=== PATIENT | female | born 1990 | race Caucasian/White ===

== ENCOUNTER 2020-08-06 21:27 | Emergency (ER) | payer MEDICARE ==
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
== END 2020-08-06 23:00 | disposition home or self-care (01) ==
LOC: JP.ED 21:27
DX: B34.9 Viral infection, unspecified (principal); K22.4 Dyskinesia of esophagus; Z79.899 Other long term (current) drug therapy
CPT/HCPCS: 99282; 99284

== ENCOUNTER 2020-08-26 08:40 | Emergency (ER) | payer OTHER, MEDICARE ==
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
[2020-08-26] MEDS ORDERED: Ketorolac 30 MG/ML SDV IM ONE (11:46)
[2020-08-26] MEDS ORDERED: Methocarbamol 500 MG Tab PO ONE (11:47)
--- NOTE | 2020-08-26 12:00 | CT ---
Head wo Cont CLINICAL HISTORY: Head injury, headache COMPARISON: None TECHNIQUE: Transverse scans were obtained from the base of the skull through the vertex without IV contrast on a multislice, multidetector CT scanner. Auto dosage reduction and iterative reconstruction techniques employed. FINDINGS: No focal abnormal parenchymal density is identified.. There is no mass effect, hemorrhage, or extraaxial collection. The basal cisterns and sulci over the convexities are normal. The ventricles are normal. IMPRESSION: No acute intracranial findings
--- NOTE | 2020-08-26 12:01 | CR ---
Lumbar Spine 2 or 3V CLINICAL HISTORY: Fall, pain FINDINGS: The vertebral body heights are maintained. There is some disc space narrowing at L5-S1. This may be related to transitional sacral segment. Transverse and spinous processes and pedicles appear intact. There is some straightening of the lumbar lordosis. IMPRESSION: Disc space narrowing L5-S1. This may be partially related to the transitional segment No fracture or dislocation Straightening of the lumbar lordosis may indicate some spasm
== END 2020-08-26 12:45 | disposition home or self-care (01) ==
LOC: JP.ED 08:40
DX: S06.0X0A Concussion without loss of consciousness, initial encounter (principal); S39.012A Strain of muscle, fascia and tendon of lower back, initial encounter; W19.XXXA Unspecified fall, initial encounter
CPT/HCPCS: 70450; 70450-26; 72100; 72100-26; 96372; 99283; 99284-25; A9270-GY; J1885

== ENCOUNTER 2021-03-05 14:32 | Emergency (ER) | payer MEDICARE, MEDICAID ==
[2021-03-05] MEDS ORDERED: Codeine/guaiFENesin 10-100 MG/5 ML Syrup 5 ML Cup PO ONE (15:29)
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
[2021-03-05] MEDS ORDERED: Codeine/guaiFENesin 10-100 MG/5 ML Syrup 5 ML Cup ONE (16:00)
[2021-03-05] MEDS ORDERED: predniSONE 20 MG Tab PO ONE (16:40)
[2021-03-05] MEDS ORDERED: Albuterol/Ipratropium 3.0-0.5 MG/3 ML Neb Soln NEB ONE (16:41)
[2021-03-05] MEDS ORDERED: Albuterol 0.083% 2.5 MG/3 ML Neb Soln NEB ONE (17:17)
[2021-03-05] MEDS ORDERED: Ondansetron 4 MG Tab.DIS PO ONE (17:22)
== END 2021-03-05 17:56 | disposition home or self-care (01) ==
LOC: JP.ED 14:32
DX: J45.901 Unspecified asthma with (acute) exacerbation (principal); Z20.822 Contact with and (suspected) exposure to COVID-19
CPT/HCPCS: 36415; 85027; 99284; A9270; J7512; U0002; J7620-GY

== ENCOUNTER 2021-03-11 21:55 | Emergency (ER) | payer MEDICARE, MEDICAID ==
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
[2021-03-11] MEDS ORDERED: Albuterol/Ipratropium 3.0-0.5 MG/3 ML Neb Soln NEB ONE (23:43)
--- NOTE | 2021-03-14 09:23 | CR ---
CHEST: Lateral 03/11/2021 at 10:59 PM CLINICAL HISTORY:Cough COMPARISON:None FINDINGS: The heart size, pulmonary vascularity and hilar structures are normal. No infiltrate effusion or pneumothorax is seen. IMPRESSION: No acute cardiopulmonary process.
== END 2021-03-12 00:10 | disposition home or self-care (01) ==
LOC: JP.ED 21:55
DX: J45.909 Unspecified asthma, uncomplicated (principal); E66.01 Morbid (severe) obesity due to excess calories; E11.9 Type 2 diabetes mellitus without complications; Z20.822 Contact with and (suspected) exposure to COVID-19; Z68.43 Body mass index [BMI] 50.0-59.9, adult
CPT/HCPCS: 71045; 94640; 99285; U0002; J7620-GY

== ENCOUNTER 2021-03-15 18:27 | Emergency (ER) | payer MEDICARE, MEDICAID ==
[2021-03-15] MEDS ORDERED: Iopamidol 612 MG/ML 100 ML Bottle IV SCH (19:30)
[2021-03-15] MEDS ORDERED: Sodium Chloride 0.9% 80 ML IV SCH (19:30)
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
--- NOTE | 2021-03-15 20:15 | CRLCT ---
For Patients: As a result of the Century Cures Act, medical imaging exams and procedure reports are released immediately into your electronic medical record. You may view this report before your referring provider. If you have questions, please contact your health care provider. INDICATION: Abdominal pain. TECHNIQUE: CT abdomen and pelvis acquired with 100 mL Isovue-300 contrast. COMPARISON: None FINDINGS: Lower chest: No focal consolidation. Liver: No suspicious focal hepatic lesion. Gallbladder and bile ducts: 1.4 cm peripherally calcified gallstone. No secondary signs of acute cholecystitis. Pancreas: Unremarkable. Spleen: Unremarkable. Adrenal glands: Unremarkable. Kidneys: Kidneys enhance symmetrically, without hydronephrosis. Retroperitoneum: No lymphadenopathy. Bowel and mesentery: Bowel is nonobstructed. Normal appendix. Bladder: Decompressed, suboptimally evaluated. Reproductive organs: Diffuse abnormal thickening of the endometrium with ill-defined soft tissue. Pelvic lymph nodes: No lymphadenopathy. Vessels: Unremarkable. Abdominal wall: No acute abdominal wall abnormality. Bones: No suspicious/aggressive focal osseous lesion. IMPRESSION: 1. Diffuse abnormal thickening of the endometrium with ill-defined soft tissue, recommend further evaluation with pelvic ultrasound. 2. Large peripherally calcified 1.4 cm gallstone. No secondary signs of acute cholecystitis. Please note that all CT scans at this facility use dose modulation, iterative reconstruction, and/or weight-based dosing when appropriate to reduce radiation dose to as low as reasonably achievable. Dictated by Ronna Garcia MD @ 03/15/2021 8:14:[address] Ronna Garcia @ Mar 15 2021 8:14PM
== END 2021-03-15 21:49 | disposition home or self-care (01) ==
LOC: JP.ED 18:27
DX: K80.20 Calculus of gallbladder without cholecystitis without obstruction (principal); B34.9 Viral infection, unspecified; R42 Dizziness and giddiness; J45.909 Unspecified asthma, uncomplicated; E11.9 Type 2 diabetes mellitus without complications; Z79.899 Other long term (current) drug therapy
CPT/HCPCS: 74177; 99284; Q9967

== ENCOUNTER 2021-03-23 14:59 | Emergency (ER) | payer MEDICARE, MEDICAID ==
[2021-03-23] MEDS ORDERED: fentaNYL 100 MCG/2 ML SDV IVPUSH ONE (16:22)
[2021-03-23] MEDS ORDERED: Prochlorperazine 10 MG/2 ML SDV IVPUSH ONE (16:22)
[2021-03-23] MEDS ORDERED: Sodium Chloride 0.9% 10 ML Syringe FLUSH PRN (16:22)
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
[2021-03-23] MEDS ORDERED: Lactated Ringers 1,000 ML IV SCH (16:30)
--- NOTE | 2021-03-23 18:19 | CRLUS ---
For Patients: As a result of the Century Cures Act, medical imaging exams and procedure reports are released immediately into your electronic medical record. You may view this report before your referring provider. If you have questions, please contact your health care provider. INDICATION: Right upper quadrant pain. COMPARISON: CT of the abdomen and pelvis 03/15/2021. TECHNIQUE: Real time cornejo scale imaging and color Doppler analysis was performed of the right upper quadrant. FINDINGS: Liver: The liver is normal in size measuring 15.8 cm in length. Increased echogenicity compatible with hepatic steatosis. No focal liver lesions. Gallbladder: There is a mobile shadowing gallstone measuring 1.9 cm in size. No wall thickening or pericholecystic fluid. Negative sonographic Sawant sign. Bile ducts: No biliary dilation. The common bile duct measures 4 mm in diameter. Pancreas: Not well seen. Right kidney: The right kidney measures 10.1 cm in length. No hydronephrosis, calculus, or mass. Vascular: The IVC is patent. The main portal vein is patent with normal hepatopetal flow. IMPRESSION: 1. Cholelithiasis without evidence of cholecystitis. 2. Diffuse hepatic steatosis. Dictated by Lisa Justin MD @ 03/23/2021 6:17:26 PM (Electronically Signed)
== END 2021-03-23 18:56 | disposition home or self-care (01) ==
LOC: JP.ED 14:59
DX: K59.04 Chronic idiopathic constipation (principal); J45.909 Unspecified asthma, uncomplicated; E11.9 Type 2 diabetes mellitus without complications; Z79.84 Long term (current) use of oral hypoglycemic drugs; Z79.899 Other long term (current) drug therapy
CPT/HCPCS: 36415; 76705; 80053; 81001; 81025; 83605; 83690; 85025; 96374; 96375; 99284; J0780; J3010; J7120

== ENCOUNTER 2021-07-21 17:18 | Emergency (ER) | payer MEDICARE, MEDICAID ==
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
== END 2021-07-21 18:38 | disposition home or self-care (01) ==
LOC: JP.ED 17:18
DX: K52.9 Noninfective gastroenteritis and colitis, unspecified (principal); E66.01 Morbid (severe) obesity due to excess calories; E11.9 Type 2 diabetes mellitus without complications; Z79.84 Long term (current) use of oral hypoglycemic drugs; Z68.43 Body mass index [BMI] 50.0-59.9, adult
CPT/HCPCS: 99283

== ENCOUNTER 2022-03-14 19:01 | Emergency (ER) | payer MEDICARE, MEDICAID | END 2022-03-14 21:59 | disposition home or self-care (01) | LOC: JP.ED 19:01 | DX: S06.0X9A Concussion with loss of consciousness of unspecified duration, initial encounter (principal); S16.1XXA Strain of muscle, fascia and tendon at neck level, initial encounter; S39.012A Strain of muscle, fascia and tendon of lower back, initial encounter; S00.03XA Contusion of scalp, initial encounter; S70.02XA Contusion of left hip, initial encounter; E11.9 Type 2 diabetes mellitus without complications; E66.9 Obesity, unspecified; Z68.30 Body mass index [BMI] 30.0-30.9, adult; Z79.84 Long term (current) use of oral hypoglycemic drugs; W01.198A Fall on same level from slipping, tripping and stumbling with subsequent striking against other object, initial encounter | CPT/HCPCS: 70450; 72070; 72100; 72125; 73502-LT; 99284 ==

== ENCOUNTER 2022-05-18 17:51 | Emergency (ER) | payer MEDICARE, MEDICAID | END 2022-05-18 18:42 | disposition home or self-care (01) | LOC: JP.ED 17:51 | DX: S39.012A Strain of muscle, fascia and tendon of lower back, initial encounter (principal); R68.84 Jaw pain; M62.838 Other muscle spasm; E11.9 Type 2 diabetes mellitus without complications; E66.9 Obesity, unspecified; Z68.30 Body mass index [BMI] 30.0-30.9, adult; Z79.899 Other long term (current) drug therapy; Z79.84 Long term (current) use of oral hypoglycemic drugs; Y04.0XXA Assault by unarmed brawl or fight, initial encounter | CPT/HCPCS: 99283 ==

== ENCOUNTER 2022-05-22 17:51 | Emergency (ER) | payer MEDICARE, MEDICAID ==
[2022-05-22] MEDS ORDERED: Sodium Chloride 0.9% 10 ML Syringe FLUSH PRN (19:03)
[2022-05-22] MEDS ORDERED: Ondansetron 4 MG/2 ML SDV IVPUSH ONE (19:10)
[2022-05-22] MEDS ORDERED: Ketorolac 30 MG/ML SDV IVPUSH ONE (19:11)
[2022-05-22] MEDS ORDERED: Sodium Chloride 0.9% 500 ML IV ONE (19:15)
[2022-05-22] MEDS ORDERED: Sodium Chloride 0.9% 75 ML IV SCH (19:45)
[2022-05-22] MEDS ORDERED: Iopamidol 612 MG/ML 100 ML Bottle IV SCH (19:45)
[2022-05-22 19:56] LABS: ESTIMATED GFR 101 mL/min (>60)
[2022-05-22] MEDS ORDERED: Pantoprazole 40 MG Vial IVPUSH ONE (20:20)
== END 2022-05-22 21:15 | disposition home or self-care (01) ==
LOC: JP.ED 17:51
DX: K80.20 Calculus of gallbladder without cholecystitis without obstruction (principal); D50.9 Iron deficiency anemia, unspecified; J45.909 Unspecified asthma, uncomplicated; E11.9 Type 2 diabetes mellitus without complications; E66.01 Morbid (severe) obesity due to excess calories; Z68.43 Body mass index [BMI] 50.0-59.9, adult; Z79.84 Long term (current) use of oral hypoglycemic drugs; Z79.899 Other long term (current) drug therapy
CPT/HCPCS: 36415; 74177; 80053; 83690; 85025; 86140; 96374; 96375; 99284; C9113; J1885; J2405; J3490; J7040; Q9967

== ENCOUNTER 2022-06-20 07:19 | Day surgery (SDC) | payer MEDICARE, MEDICAID ==
[2022-06-20] MEDS ORDERED: Sodium Chloride 0.9% 1,000 ML IV SCH (08:00)
[2022-06-20] MEDS ORDERED: Midazolam 1 MG/ML 2 ML SDV ONE (08:20)
[2022-06-20] MEDS ORDERED: Propofol 200 MG/20 ML SDV ONE (08:20)
[2022-06-20] MEDS ORDERED: fentaNYL 50 MCG/ML SDV ONE (08:20)
== END 2022-06-20 09:49 | disposition home or self-care (01) ==
LOC: JP.SDS 07:19
PROVIDERS: ATTEND Family Medicine
DX: K29.50 Unspecified chronic gastritis without bleeding (principal); K21.9 Gastro-esophageal reflux disease without esophagitis; D50.9 Iron deficiency anemia, unspecified; J45.909 Unspecified asthma, uncomplicated; E66.9 Obesity, unspecified; E11.9 Type 2 diabetes mellitus without complications; Z79.899 Other long term (current) drug therapy; Z91.018 Allergy to other foods
CPT/HCPCS: 43239; 88305; 88342; J2250; J2704; J3010; J7030

== ENCOUNTER 2023-01-02 21:48 | Emergency (ER) | payer MEDICARE, MEDICAID ==
[2023-01-02 23:00] LABS: APPEARANCE,URINE CLEAR (CLEAR); BILIRUBIN,URINE NEGATIVE (NEGATIVE); COLOR,URINE YELLOW (YELLOW); GLUCOSE,URINE 100 mg/dL (NEGATIVE); KETONES,URINE NEGATIVE (NEGATIVE); LEUKOCYTE ESTERASE,URINE NEGATIVE (NEGATIVE); NITRITE,URINE NEGATIVE (NEGATIVE); OCCULT BLOOD,URINE MODERATE (NEGATIVE); PH,URINE 5.5 (5.0-8.0); PROTEIN,URINE NEGATIVE (NEGATIVE); UROBILINOGEN,URINE 0.2 EU/dL (0.2-1.0)
[2023-01-02 23:15] LABS: AMORPHOUS SEDIMENT,URINE NOT SEEN; BACTERIA,URINE MANY; EPITHELIAL CELLS,URINE MODERATE; MUCUS,URINE NOT SEEN; RBC,URINE 0-5 (0-5); WBC,URINE 0-5 (0-5)
[2023-01-02] MEDS ORDERED: Phenazopyridine 95 MG Tab PO STA (23:32)
== END 2023-01-02 23:54 | disposition home or self-care (01) ==
LOC: JP.ED 21:48
DX: N30.01 Acute cystitis with hematuria (principal); J45.909 Unspecified asthma, uncomplicated; E11.9 Type 2 diabetes mellitus without complications; E66.9 Obesity, unspecified; Z68.43 Body mass index [BMI] 50.0-59.9, adult; Z91.018 Allergy to other foods; Z91.048 Other nonmedicinal substance allergy status; Z86.16 Personal history of COVID-19; Z79.899 Other long term (current) drug therapy
CPT/HCPCS: 81001; 81025; 87086; 99284; A9270

== ENCOUNTER 2023-01-05 21:16 | Emergency (ER) | payer MEDICARE, MEDICAID ==
[2023-01-05] MEDS: Sodium Chloride 0.9% 10 ML Syringe FLUSH PRN (23:01)
[2023-01-05 23:02] LABS: BASOPHILS ABSOLUTE AUTO 0.03 K/uL (0.00-0.10); BASOPHILS PERCENT AUTO 0.4 % (0.1-1.3); EOSINOPHILS ABSOLUTE AUTO 0.35 K/uL (0.00-0.40); EOSINOPHILS PERCENT AUTO 4.7 % (0.0-5.4); HEMATOCRIT 34.5 % (34.3-46.0); HEMOGLOBIN 10.9 g/dL (11.2-15.5); IMMATURE GRAN PERCENT AUTO 0.3 % (0.0-0.7); LYMPHOCYTES ABSOLUTE AUTO 0.42 K/uL (0.8-3.3); LYMPHOCYTES PERCENT AUTO 5.6 % (11.4-47.7); MEAN CORPUSCULAR HGB CONC 31.6 g/dL (31.6-35.5); MEAN CORPUSCULAR VOLUME 75.8 fL (81.4-99.0); MONOCYTES ABSOLUTE AUTO 0.39 K/uL (0.20-0.90); MONOCYTES PERCENT AUTO 5.2 % (3.3-12.6); NEUTROPHILS ABSOLUTE AUTO 6.28 K/uL (1.0-7.6); NEUTROPHILS PERCENT AUTO 83.8 % (40.0-78.1); PLATELET COUNT,PLT 298 K/uL (130-375); RED BLOOD CELL COUNT 4.55 M/uL (3.77-5.24); WHITE BLOOD CELL COUNT,WBC 7.5 K/uL (3.2-11.0)
[2023-01-05 23:10] LABS: IMMATURE GRAN ABSOLUTE AUTO 0.02 K/uL (0.00-0.23)
[2023-01-05 23:13] LABS: CALCIUM 8.6 mg/dL (8.5-10.1); CREATININE 0.8 mg/dL (0.6-1.0); EST CRCL DRUG DOSING (CG) 76.89 mL/min; POTASSIUM,K 3.8 mmol/L (3.6-5.2)
[2023-01-05] MEDS ORDERED: Iopamidol 612 MG/ML 150 ML Bottle IV SCH (23:15)
[2023-01-05] MEDS ORDERED: Sodium Chloride 0.9% 50 ML IV SCH (23:15)
[2023-01-05 23:19] LABS: ANION GAP 13.8 mmol/L (5.0-14.0)
[2023-01-06] MEDS: Sodium Chloride 0.9% 10 ML Syringe FLUSH PRN (00:09)
== END 2023-01-06 00:49 | disposition home or self-care (01) ==
LOC: JP.ED 21:16
DX: R10.30 Lower abdominal pain, unspecified (principal); J45.909 Unspecified asthma, uncomplicated; E11.9 Type 2 diabetes mellitus without complications; E66.9 Obesity, unspecified; Z68.44 Body mass index [BMI] 60.0-69.9, adult; Z91.018 Allergy to other foods; Z91.048 Other nonmedicinal substance allergy status; Z86.16 Personal history of COVID-19
CPT/HCPCS: 36415; 74177; 80048; 82247; 85025; 99284; J3490; Q9967

== ENCOUNTER 2023-09-22 10:52 | Emergency (ER) | payer MEDICAID, MEDICARE ==
[2023-09-22] MEDS: Ketorolac 30 MG/ML SDV IVPUSH ONE (11:46)
[2023-09-22] MEDS: Ondansetron 4 MG/2 ML SDV IVPUSH ONE (11:46)
[2023-09-22] MEDS: Lactated Ringers 1,000 ML IV SCH (11:46)
[2023-09-22 11:47] LABS: BASOPHILS ABSOLUTE AUTO 0.05 K/uL (0.00-0.10); BASOPHILS PERCENT AUTO 0.3 % (0.1-1.3); EOSINOPHILS ABSOLUTE AUTO 0.33 K/uL (0.00-0.40); EOSINOPHILS PERCENT AUTO 2.1 % (0.0-5.4); HEMATOCRIT 42.6 % (34.3-46.0); HEMOGLOBIN 13.5 g/dL (11.2-15.5); IMMATURE GRAN ABSOLUTE AUTO 0.05 K/uL (0.00-0.23); IMMATURE GRAN PERCENT AUTO 0.3 % (0.0-0.7); LYMPHOCYTES ABSOLUTE AUTO 1.19 K/uL (0.8-3.3); LYMPHOCYTES PERCENT AUTO 7.5 % (11.4-47.7); MEAN CORPUSCULAR HEMOGLOBIN 24.7 pg (31.6-35.5); MEAN CORPUSCULAR HGB CONC 31.7 g/dL (31.6-35.5); MONOCYTES ABSOLUTE AUTO 0.75 K/uL (0.20-0.90); MONOCYTES PERCENT AUTO 4.7 % (3.3-12.6); NEUTROPHILS ABSOLUTE AUTO 13.51 K/uL (1.0-7.6); NEUTROPHILS PERCENT AUTO 85.1 % (40.0-78.1); PLATELET COUNT,PLT 383 K/uL (130-375); RED BLOOD CELL COUNT 5.46 M/uL (3.77-5.24); WHITE BLOOD CELL COUNT,WBC 15.9 K/uL (3.2-11.0)
[2023-09-22] MEDS: Sodium Chloride 0.9% 10 ML Syringe FLUSH PRN (11:50)
[2023-09-22 12:20] LABS: A/G RATIO 0.6 (1.2-2.2); ALANINE AMINOTRANSFERASE,ALT 23 U/L (12-78); ALBUMIN 3.3 g/dL (3.4-5.0); ALKALINE PHOSPHATASE 107 U/L (46-116); ASPARTATE AMNIOTRANSFERASE,AST 19 U/L (15-37); BILIRUBIN TOTAL 0.2 mg/dL (0.2-1.0); BLOOD UREA NITROGEN,BUN 9 mg/dL (7-18); CALCIUM 9.9 mg/dL (8.5-10.1); CARBON DIOXIDE,CO2 20 mmol/L (21-32); CHLORIDE,CL 98 mmol/L (100-108); CREATININE 1.1 mg/dL (0.6-1.0); ESTIMATED GFR 68 mL/min (>60); GLUCOSE RANDOM 206 mg/dL (74-106); POTASSIUM,K 4.4 mmol/L (3.6-5.2); PROTEIN TOTAL,TP 9.1 g/dL (6.4-8.2); SODIUM,NA 136 mmol/L (140-148)
[2023-09-22 12:24] LABS: ANION GAP 22.4 mmol/L (5.0-14.0)
[2023-09-22 12:35] LABS: CORONAVIRUS COVID-19 NAA NEGATIVE (NEGATIVE); INFLUENZA A NAA NEGATIVE (NEGATIVE); INFLUENZA B NAA NEGATIVE (NEGATIVE); RESPIRATORY SYNCYTIAL VIR NAA NEGATIVE (NEGATIVE)
[2023-09-22] MEDS: Loperamide 2 MG Cap PO STA (13:37)
[2023-09-22] MEDS: Lactated Ringers 1,000 ML IV ONE (13:37)
== END 2023-09-22 15:18 | disposition home or self-care (01) ==
LOC: JP.ED 10:52
DX: K52.9 Noninfective gastroenteritis and colitis, unspecified (principal); J45.909 Unspecified asthma, uncomplicated; E11.9 Type 2 diabetes mellitus without complications; Z86.16 Personal history of COVID-19; Z79.899 Other long term (current) drug therapy; Z91.018 Allergy to other foods; Z91.048 Other nonmedicinal substance allergy status
CPT/HCPCS: 0241U; 36415; 80053; 83605; 83690; 84145; 84703; 85025; 86140; 96361; 96374; 96375; 99284; A9270; J1885; J2405; J3490; J7120

== ENCOUNTER 2023-11-10 20:19 | Emergency (ER) | payer MEDICARE ==
[2023-11-10] MEDS ORDERED: Sodium Chloride 0.9% 10 ML Syringe FLUSH PRN (22:15)
[2023-11-10 22:27] LABS: BASOPHILS ABSOLUTE AUTO 0.06 K/uL (0.00-0.10); BASOPHILS PERCENT AUTO 0.5 % (0.1-1.3); EOSINOPHILS ABSOLUTE AUTO 0.33 K/uL (0.00-0.40); EOSINOPHILS PERCENT AUTO 2.9 % (0.0-5.4); HEMATOCRIT 38.7 % (34.3-46.0); HEMOGLOBIN 12.3 g/dL (11.2-15.5); IMMATURE GRAN ABSOLUTE AUTO 0.04 K/uL (0.00-0.23); IMMATURE GRAN PERCENT AUTO 0.4 % (0.0-0.7); LYMPHOCYTES PERCENT AUTO 23.8 % (11.4-47.7); MEAN CORPUSCULAR HEMOGLOBIN 24.4 pg (31.6-35.5); MEAN CORPUSCULAR HGB CONC 31.8 g/dL (31.6-35.5); MEAN CORPUSCULAR VOLUME 76.8 fL (81.4-99.0); MONOCYTES ABSOLUTE AUTO 0.77 K/uL (0.20-0.90); MONOCYTES PERCENT AUTO 6.8 % (3.3-12.6); NEUTROPHILS ABSOLUTE AUTO 7.45 K/uL (1.0-7.6); NEUTROPHILS PERCENT AUTO 65.6 % (40.0-78.1); PLATELET COUNT,PLT 447 K/uL (130-375); RED BLOOD CELL COUNT 5.04 M/uL (3.77-5.24); WHITE BLOOD CELL COUNT,WBC 11.4 K/uL (3.2-11.0)
[2023-11-10 22:45] LABS: A/G RATIO 0.5 (1.2-2.2); ALANINE AMINOTRANSFERASE,ALT 20 U/L (12-78); ALBUMIN 2.8 g/dL (3.4-5.0); ALKALINE PHOSPHATASE 89 U/L (46-116); ANION GAP 14.3 mmol/L (5.0-14.0); ASPARTATE AMNIOTRANSFERASE,AST 13 U/L (15-37); BILIRUBIN TOTAL 0.3 mg/dL (0.2-1.0); BLOOD UREA NITROGEN,BUN 8 mg/dL (7-18); C-REACTIVE PROTEIN 10.11 mg/dL (<0.50); CALCIUM 10.1 mg/dL (8.5-10.1); CARBON DIOXIDE,CO2 28 mmol/L (21-32); CHLORIDE,CL 98 mmol/L (100-108); CREATININE 0.8 mg/dL (0.6-1.0); EST CRCL DRUG DOSING (CG) 76.18 mL/min; ESTIMATED GFR 100 mL/min (>60); GLUCOSE RANDOM 196 mg/dL (74-106); POTASSIUM,K 4.3 mmol/L (3.6-5.2); PROTEIN TOTAL,TP 8.6 g/dL (6.4-8.2); SODIUM,NA 136 mmol/L (140-148)
[2023-11-10 22:50] LABS: LACTIC ACID 1.9 mmol/L (0.4-2.0)
[2023-11-10 23:08] LABS: APPEARANCE,URINE CLEAR (CLEAR); BILIRUBIN,URINE NEGATIVE (NEGATIVE); COLOR,URINE YELLOW (YELLOW); GLUCOSE,URINE 500 mg/dL (NEGATIVE); KETONES,URINE NEGATIVE (NEGATIVE); LEUKOCYTE ESTERASE,URINE NEGATIVE (NEGATIVE); NITRITE,URINE NEGATIVE (NEGATIVE); OCCULT BLOOD,URINE MODERATE (NEGATIVE); PH,URINE 6.5 (5.0-8.0); PROTEIN,URINE 30 mg/dL (NEGATIVE); UROBILINOGEN,URINE 0.2 EU/dL (0.2-1.0)
[2023-11-10] MEDS: Sodium Chloride 0.9% 1,000 ML IV ONE (23:10)
[2023-11-10] MEDS: Ketorolac 15 MG/ML SDV IVPUSH ONE (23:17)
[2023-11-10 23:43] LABS: AMORPHOUS SEDIMENT,URINE FEW; BACTERIA,URINE FEW; EPITHELIAL CELLS,URINE FEW; MUCUS,URINE NOT SEEN; RBC,URINE 0-5 (0-5); WBC,URINE 0-5 (0-5)
== END 2023-11-11 00:24 | disposition home or self-care (01) ==
LOC: JP.ED 20:19
DX: K57.92 Diverticulitis of intestine, part unspecified, without perforation or abscess without bleeding (principal); E11.9 Type 2 diabetes mellitus without complications; Z91.048 Other nonmedicinal substance allergy status; Z91.018 Allergy to other foods; Z79.51 Long term (current) use of inhaled steroids; Z79.899 Other long term (current) drug therapy; Z86.16 Personal history of COVID-19
CPT/HCPCS: 36415; 80053; 81001; 82272; 83605; 83690; 84145; 84703; 85025; 86140; 96361; 96374; 99284; J1885; J7030